=== PATIENT | male | born 1990 | race Caucasian/White ===

== ENCOUNTER 2018-07-09 15:35 | Emergency (ER) | payer SELFPAY ==
[2018-07-09] MEDS ORDERED: PHENYLEPHRINE 0.25% NASAL 15 ML SPRAY ONE (15:56)
[2018-07-09] MEDS: PHENYLEPHRINE 0.25% NASAL 15 ML SPRAY EACHNARE ONE (15:59)
--- NOTE | 2018-07-09 16:02 | EDPHY ---
H & P Time Seen by Provider: 07/09/18 15:53 HPI/ROS: CHIEF COMPLAINT: Nose pain HISTORY OF PRESENT ILLNESS: Patient is a 27-year-old male who presents emergency department after injuring his nose and left eye. Patient states that he struck a door knob eat times by accident. He reports that his backpack" likes door knobs."Patient denies loss of consciousness. The patient states that to treat the pain he took a beer and Aleve. Patient has no nausea or vomiting. No visual change. Patient states that he is sure that he broke his left orbit. Patient has had a bloody nose since the injury. REVIEW OF SYSTEMS: 10 systems were reveiwed and are negative with the exception of the elements mentioned in the history of present illness. Past Medical/Surgical History: Includes PTSD, alcohol abuse, seizures Past surgical history: Includes left elbow surgery Social history: The patient drinks alcohol. Smoking Status: Current every day smoker Physical Exam: Vitals noted. Tachycardic at 132 GENERAL: Well-appearing, in no acute distress, alert. HEENT: Patient has contusion on her his left eye. There is mild periorbital tenderness palpation. The globe appears intact. PERRLA. Extraocular movement intact. No blurred vision with extraocular movements. The patient has mild bleeding from both nares. No septal hematoma. NECK: Normal, supple. The cervical tenderness to palpation RESPIRATORY: Clear to auscultation bilaterally, no rales, rhonchi or wheezing. CVS: Regular rate and rhythm, no rubs, murmurs, or gallops. ABDOMEN: Soft, nontender, nondistended, no organomegaly. BACK: Normal to inspection, no CVA tenderness. SKIN: Normal color, no rash, warm, dry. No pallor. EXTREMITIES: No pedal edema, no joint swelling. NEURO/PSYCH: Alert and oriented, normal mood and affect, normal motor sensory exam. No obvious cranial nerve deficit. Constitutional: Initial Vital Signs Temperature (C) 37.5 C 07/09/18 15:39 Heart Rate 132 H 07/09/18 15:39 Respiratory Rate 16 07/09/18 15:39 Blood Pressure 126/77 H 07/09/18 15:39 O2 Sat (%) 93 07/09/18 15:39 O2 Delivery Mode Room Air Allergies/Adverse Reactions: No Known Allergies Allergy (Verified 07/09/18 15:43) Home Medications: Medication Instructions Recorded Ibuprofen 07/09/18 Naproxen 07/09/18 Medical Decision Making - Diagnostics Imaging Results: Imaging Impressions Head CT 07/09/18 16:02 Impression: Comminuted mildly displaced nasal bone fracture. Findings discussed with ALDO Audrey TERRI 07/09/2018 at 17:01. ED Course/Re-evaluation: In the emergency department I discussed possible etiologies with the patient. I answered all his questions. CT of his head was ordered. Patient was given Afrin spray in both nares. A nasal clamp was applied. Because the patient was tachycardic I was concerned the patient could be having alcohol withdrawal. Because of this alcohol withdrawal protocol was followed. I discussed this with the nursing staff. White count is mildly elevated 10. Chemistry panel is unremarkable. Head CT: Please refer the dictated report by Dr. Henning. Patient has a comminuted nasal bone fracture. There is no orbital fracture. No subarachnoid hemorrhage or epidural hematoma. I discussed the results with the patient. I answered all his questions. On recheck the patient is heart rate was 92. Patient had no significant tremor. I recommended the patient go to the [facility]. The patient does not want help with his alcohol abuse. Patient was given warnings prior to leaving. He will follow up with LEONEL Lenz. He is given contact information. Differential Diagnosis: My differential includes but is not limited to nosebleed, septal hematoma, orbital fracture, skull fracture, subarachnoid hemorrhage, subdural hematoma, epidural hematoma, dehydration, drug abuse, alcohol withdrawal - Data Points Laboratory Results: Laboratory Results 07/09/18 16:18 07/09/18 16:18 07/09/18 07/09/18 16:18 16:18 WBC 10.47 10^3/uL H 10^3/uL (3.80-9.50) RBC 4.86 10^6/uL 10^6/uL (4.40-6.38) Hgb 15.4 g/dL g/dL (13.7-17.5) Hct 44.0 % % (40.0-51.0) MCV 90.5 fL fL (81.5-99.8) MCH 31.7 pg pg (27.9-34.1) MCHC 35.0 g/dL g/dL (32.4-36.7) RDW 14.2 % % (11.5-15.2) Plt Count 278 10^3/uL 10^3/uL (150-400) MPV 10.8 fL fL (8.7-11.7) Neut % (Auto) 68.7 % % (39.3-74.2) Lymph % (Auto) 23.1 % % (15.0-45.0) Smith % (Auto) 7.4 % % (4.5-13.0) Eos % (Auto) 0.2 % L % (0.6-7.6) Baso % (Auto) 0.3 % % (0.3-1.7) Nucleat RBC Rel Count 0.0 % % (0.0-0.2) Absolute Neuts (auto) 7.19 10^3/uL H 10^3/uL (1.70-6.50) Absolute Lymphs (auto) 2.42 10^3/uL 10^3/uL (1.00-3.00) Absolute Monos (auto) 0.78 10^3/uL 10^3/uL (0.30-0.80) Absolute Eos (auto) 0.02 10^3/uL L 10^3/uL (0.03-0.40) Absolute Basos (auto) 0.03 10^3/uL 10^3/uL (0.02-0.10) Absolute Nucleated RBC 0.00 10^3/uL 10^3/uL (0-0.01) Immature Gran % 0.3 % % (0.0-1.1) Immature Gran # 0.03 10^3/uL 10^3/uL (0.00-0.10) Sodium 141 mEq/L mEq/L (135-145) Potassium 3.9 mEq/L mEq/L (3.3-5.0) Chloride 106 mEq/L mEq/L (97-110) Carbon Dioxide 22 mEq/l mEq/l (22-31) Anion Gap 13 mEq/L mEq/L (6-14) BUN 13 mg/dL mg/dL (7-23) Creatinine 0.8 mg/dL mg/dL (0.7-1.3) Estimated GFR > 60 Glucose 122 mg/dL H mg/dL (70-100) Calcium 9.4 mg/dL mg/dL (8.5-10.4) Medications Given: Discontinued Medications Phenylephrine HCl (Neosynephrine) 1 spray EACHNARE EDNOW ONE Stop: 07/09/18 16:00 Last Admin: 07/09/18 15:59 Dose: 1 spray Departure - Departure Disposition: Home, Routine, Self-Care Clinical Impression: Alcohol abuse Facial contusion Qualifiers: Encounter type: initial encounter Qualified Code(s): S00.83XA - Contusion of other part of head, initial encounter Nasal fracture Qualifiers: Encounter type: initial encounter Fracture type: closed Qualified Code(s): S02.2XXA - Fracture of nasal bones, initial encounter for closed fracture Condition: Good Instructions: Nasal Fracture (ED), Abuse of Alcohol (ED) Additional Instructions: You have a nose fracture on CT imaging. There is no orbital fracture. Call ENT to make an appointment for close follow-up. Referrals: Héctor Weinberg MD [Medical Doctor] - 5-7 days, call for appt.
[2018-07-09] MEDS ORDERED: LORazepam 1 MG TAB PO PRN (16:11)
[2018-07-09] MEDS ORDERED: LORazepam 2 MG/ML INJ IVP PRN (16:11)
[2018-07-09] MEDS ORDERED: NS 1,000 ML IV ONE (16:41)
[2018-07-09 16:47] LABS: PLATELET COUNT 278 10^3/uL (150-400)
[2018-07-09 17:15] VITALS: BP 110/63
== END 2018-07-09 17:32 | disposition home or self-care (01) ==
DX: S02.2XXA Fracture of nasal bones, initial encounter for closed fracture (principal); W22.8XXA Striking against or struck by other objects, initial encounter